=== PATIENT | male | born 1965 | race Caucasian/White ===

== ENCOUNTER 2017-11-11 09:59 | Emergency (ER) | payer OTHER ==
[2017-11-11 10:51] VITALS: BP 149/86
--- NOTE | 2017-11-11 11:23 | UC ---
UC General HPI - HPI Summary HPI Summary: Patient has developed a large lumb under the mandible. it has gotten bigger over the last 3 weeks, it is non tender, no decrease in salivary function, no fever. does have some dental issues, but no sign of abcess or infection at the gum line. did have sleep apnea surgery 10 years ago no other throat issues, hx of tobacco abuse, althought he stopped that years ago. patient does not have a PCP - History of Current Complaint Chief Complaint: Malik Stated Complaint: NECK SWELLING Time Seen by Provider: 11/11/17 11:05 Hx Obtained From: Patient Onset/Duration: Sudden Onset, Lasting Weeks - 3 Timing: Constant Current Severity: None Pain Intensity: 0 - Allergy/Home Medications Allergies/Adverse Reactions: Allergies Allergy/AdvReac Type Severity Reaction Status Date / Time No Known Allergies Allergy Verified 11/11/17 10:37 Home Medications: Home Medications Ibuprofen TAB* [Motrin TAB* 800 MG] 800 mg PO Q12H PRN 11/11/17 [History Confirmed 11/11/17] Unknown Antibiotic 1 tab PO BID 11/11/17 [History Confirmed 11/11/17] PMH/Surg Hx/FS Hx/Imm Hx Previously Healthy: Yes - Surgical History Surgical History: None Surgery Procedure, Year, and Place: tonsils 2006 - Family History Known Family History: Positive: Cardiac Disease, Hypertension, Diabetes, Other - MS - Social History Alcohol Use: Weekly Alcohol Amount: 12 pack Substance Use Type: None Smoking Status (MU): Never Smoked Tobacco Type: Smokeless Tobacco Amount Used/How Often: 1 can per 2-3 days Review of Systems Constitutional: Negative Skin: Negative Eyes: Negative ENT: Other - large lump under chin Respiratory: Negative Cardiovascular: Negative Gastrointestinal: Negative Genitourinary: Negative Motor: Negative Neurovascular: Negative Musculoskeletal: Negative Neurological: Negative Psychological: Negative Is Patient Immunocompromised?: No All Other Systems Reviewed And Are Negative: Yes Physical Exam Triage Information Reviewed: Yes Appearance: No Pain Distress, Well-Nourished, Ill-Appearing Vital Signs: Initial Vital Signs Temp 98.5 F 11/11/17 10:40 Pulse 78 11/11/17 10:40 Resp 18 11/11/17 10:40 BP 149/86 11/11/17 10:40 Pulse Ox 100 11/11/17 10:40 Vital Signs Reviewed: Yes Eye Exam: Normal ENT: Positive: Pharynx normal, TMs normal, Other - large,sub mandibular non mobile, non tender mass. increased in size over the past 3 weeks, Dental: Positive: Dental Fracture @ - left lower jaw Neck exam: Normal Neck: Positive: Nontender, No Lymphadenopathy Respiratory Exam: Normal Respiratory: Positive: Chest non-tender, Lungs clear, Normal breath sounds Cardiovascular Exam: Normal Cardiovascular: Positive: RRR, No Murmur, Pulses Normal Abdominal Exam: Normal Bowel Sounds: Positive: Present Musculoskeletal Exam: Normal Neurological Exam: Normal Skin Exam: Normal Course/Dx - Course Course Of Treatment: hx obtained, exam performed ,meds reviewed, consulted with dr grimes, referred to ENT for further evaluation, did prescribed a course of keflex to treate any underlying infections cause, however suspision of infection is low. - Differential Dx - Multi-Symptom Provider Diagnoses: submandibular swelling Discharge - Discharge Plan Condition: Stable Disposition: HOME Patient Education Materials: Soft Tissue Mass (ED) Referrals: ALBERTA Eason [Primary Care Provider] - Donis Dooley MD [Medical Doctor] - Additional Instructions: 1. Take the medication as prescribed, I do not see this as an infection, but will attempt to treat as such until further imaging is completed, due to slight improvement in the past 2. Follow up with ENT, Since you have seen Dr Lopez in the past, I recommend starting there, however I have included the name of another ENT if you cannot get an appointment in a timely fashion at Dr Robles office.
== END 2017-11-11 11:35 | disposition home or self-care (01) ==
LOC: UCCORT 09:59
DX: R22.0 Localized swelling, mass and lump, head (principal); Z87.891 Personal history of nicotine dependence
CPT/HCPCS: 99212; G0463

== ENCOUNTER 2018-03-12 11:14 | Emergency (ER) | payer OTHER ==
[2018-03-12] MEDS ORDERED: NS 0.9% 1000 ML* 1,000 ML IV ONE (11:29)
[2018-03-12 11:50] LABS: ABS Basophils 0.1 10^3/ul (0-0.2); ABS Eosinophils 0.1 10^3/ul (0-0.6); ABS Lymphocytes 2.7 10^3/ul (1.0-4.8); ABS Monocytes 0.7 10^3/ul (0-0.8); ABS Neutrophils 3.7 10^3/ul (1.5-7.7); ABS Nucleated RBC 0 10^3/ul; Eosinophil % 0.7 % (0-6); Hematocrit 40 % (42-52); Hemoglobin 13.8 g/dl (14.0-18.0); Lymphocyte % 37.8 % (25-47); Mean Corpuscular HGB Conc 35 g/dl (31-36); Mean Corpuscular Hemoglobin 31 pg (27-31); Mean Corpuscular Volume 89 fL (80-94); Mean Platelet Volume 7.1 um3 (7.4-10.4); Nucleated Red Blood Cells % 0; Platelet Count 274 10^3/ul (150-450); Red Blood Count 4.46 10^6/ul (4.00-5.40); Red Cell Distribution Width 14 % (10.5-15); White Blood Count 7.2 10^3/ul (3.5-10.8)
--- NOTE | 2018-03-12 11:56 | RAD ---
Indication: Chest pain. Single frontal view of the chest performed at 1139 hours was reviewed. No prior studies are available. No mediastinal shift is noted. Heart is of normal size and configuration. Lung arguelles appear clear. IMPRESSION: NO ACTIVE CARDIOPULMONARY DISEASE IS NOTED.
[2018-03-12] MEDS ORDERED: Aspirin 81 mg CHEW TAB* 81 MG TAB.CHEW PO ONE (11:57)
[2018-03-12 11:58] LABS: INR 0.94 (0.77-1.02)
--- NOTE | 2018-03-12 12:06 | ED ---
HPI Chest Pain - HPI Summary HPI Summary: This is samuel Hardy documenting for attending Chito Ashley MD. This patient is a 52 year old M presenting to [facility] with a chief complaint of discrete, mid-sternal CP with tightness since 10:30AM. Pt felt similar symptoms a few days ago and he went to the ER at [facility] where he was given medication for HTN. The patient rates the pain 2/10 in severity. Symptoms aggravated by food that gives him acid reflux. Patient reports mid sternal CP, trouble focusing, tightness in the chest, foot pain, mild diaphoresis, and intermittent vision changes and fuzziness. Patient denies ATKINS, dizziness, nausea , SOB, abd pain, difficulty urinating, or difficulty passing stool. Pt does not know the name of his new BP but he took it this morning at 4AM. No other Rx. PMHX acid reflux, removed benign tumor underneath chin, and chronic foot pain. SHx current smoker. - History of Current Complaint Chief Complaint: EDChestWallPain Time Seen by Provider: 03/12/18 11:24 Hx Obtained From: Patient Onset/Duration: Started Hours Ago - 10:30AM Timing: Constant Initial Severity: Mild Current Severity: Mild Pain Intensity: 2 Pain Scale Used: 0-10 Numeric Chest Pain Location: Mid Sternal Chest Pain Radiates: No Character: Tightness - Allergy/Home Medications Allergies/Adverse Reactions: Allergies Allergy/AdvReac Type Severity Reaction Status Date / Time No Known Allergies Allergy Verified 11/11/17 10:37 Home Medications: Home Medications Lisinopril TAB* [Prinivil TAB*] 10 mg PO DAILY 03/12/18 [History Confirmed 03/12] PMH/Surg Hx/FS Hx/Imm Hx Cardiovascular History: Reports: Hx Hypertension History: Denies: Hx Dialysis EENT History: Denies: Hx Deafness - Surgical History Surgery Procedure, Year, and Place: tonsils 2006 Infectious Disease History: No Infectious Disease History: Reports: History Other Infectious Disease Denies: Traveled Outside the [place] in Last 30 Days - Family History Known Family History: Positive: Cardiac Disease, Hypertension, Diabetes, Other - MS - Social History Alcohol Use: Weekly Alcohol Amount: 12 pack Substance Use Type: Reports: None Hx Tobacco Use: Yes Smoking Status (MU): Current Every Day Smoker Amount Used/How Often: 1 can per 2-3 days Review of Systems Positive: Skin Diaphoresis - mild. Negative: Fever Positive: Blurred Vision - occasional "tunnel vision" Positive: Chest Pain Negative: Shortness Of Breath Negative: Abdominal Pain, Nausea Negative: dysuria, hematuria Positive: Other - foot pain Negative: Headache All Other Systems Reviewed And Are Negative: Yes Physical Exam - Summary Physical Exam Summary: General: well-appearing, no pain distress Skin: warm, color reflects adequate perfusion, dry Head: normal Eyes: EOMI, HORACIO ENT: normal Neck: supple, nontender Respiratory: CTA, breath sounds present Cardiovascular: Elevated BP. Abdomen: soft, nontender Bowel: present Musculoskeletal: normal, strength/ROM intact. No LE edema. Neurological: sensory/motor intact, A&O x3 Psychological: affect/mood appropriate GCS: 15 Triage Information Reviewed: Yes Vital Signs On Initial Exam: Initial Vitals Temp Pulse Resp BP Pulse Ox 98.3 F 81 20 169/98 99 03/12/18 11:17 03/12/18 11:17 03/12/18 11:17 03/12/18 11:17 03/12/18 11:17 Vital Signs Reviewed: Yes Diagnostics - Vital Signs Vital Signs Temp Pulse Resp BP Pulse Ox 03/12/18 11:27 76 100 03/12/18 11:26 78 161/98 100 03/12/18 11:17 98.3 F 81 20 169/98 99 - Laboratory Lab Results: Lab Results 03/12/18 03/12/18 Range/Units 11:35 11:35 WBC 7.2 (3.5-10.8) 10^3/ul RBC 4.46 (4.00-5.40) 10^6/ul Hgb 13.8 L (14.0-18.0) g/dl Hct 40 L (42-52) % MCV 89 (80-94) fL MCH 31 (27-31) pg MCHC 35 (31-36) g/dl RDW 14 (10.5-15) % Plt Count 274 (150-450) 10^3/ul MPV 7.1 L (7.4-10.4) um3 Neut % (Auto) 50.6 (38-83) % Lymph % (Auto) 37.8 (25-47) % [place] % (Auto) 10.1 H (0-7) % Eos % (Auto) 0.7 (0-6) % Baso % (Auto) 0.8 (0-2) % Absolute Neuts (auto) 3.7 (1.5-7.7) 10^3/ul Absolute Lymphs (auto) 2.7 (1.0-4.8) 10^3/ul Absolute Monos (auto) 0.7 (0-0.8) 10^3/ul Absolute Eos (auto) 0.1 (0-0.6) 10^3/ul Absolute Basos (auto) 0.1 (0-0.2) 10^3/ul Absolute Nucleated RBC 0 10^3/ul Nucleated RBC % 0 INR (Anticoag Therapy) 0.94 (0.77-1.02) D-Dimer, Quantitative < 200 (Less Than 230) ng/mL Result Diagrams: 03/12/18 11:35 03/12/18 11:35 Lab Statement: Any lab studies that have been ordered have been reviewed, and results considered in the medical decision making process. - Radiology CXR Radiology Interpretation Completed By: Radiologist - NO ACTIVE CARDIOPULMONARY DISEASE IS NOTED. ER Physician has reviewed this report - CT Brain CT Interpretation Completed By: Radiologist - No intracranial mass or hemorrhage is noted. ER Physician reviewed this report - EKG 11:38 Cardiac Rate: NL - 73 bpm EKG Rhythm: Sinus Rhythm Ectopy: None EKG Interpretation: Min ST elevation anterior leads. Concave up ST.Q waves in V1 and V2. LVH. Re-Evaluation - Re-Evaluation First Eval Re-Evaluation Time: 14:00 Change: Improved Comment: Pt feels a lot better, his head feels more clear and his CP has improved. BP has improved. We discussed his results and he decided he would rather repeat his troponin than be admitted. Second Eval Re-Evaluation Time: 15:00 Comment: Pt still feels much better. Chest Pain Course/Dx - Course Course Of Treatment: IMPROVED IN ED. DISCUSSED ADMISSION FOR THE CHEST PRESSURE. THE PATIENT PREFERS SECOND TROPONIN AND F/U PMD. DISCUSSED INCREASING THE DOSE OF LISINOPRIL TO 20 MG A DAY. F/U PMD; RETURN TO ED IF WORSE. - Diagnoses Provider Diagnoses: Chest pain, Hypertension Discharge - Sign-Out/Discharge Documenting (check all that apply): Patient Departure - Discharge Plan Condition: Stable Disposition: HOME Patient Education Materials: Chest Pain (ED), Hypertension (ED) Referrals: Lucie Cespedes MD [Primary Care Provider] - Additional Instructions: FOLLOW UP WITH YOUR DOCTOR. TAKE THE LISINOPRIL 10MG TWICE A DAY. RETURN TO THE EMERGENCY DEPARTMENT FOR ANY WORSENING OF YOUR CONDITION; CHEST PAIN, SHORTNESS OF BREATH, YOU FEEL ILL OR QUESTIONS OR CONCERNS. - Billing Disposition and Condition Condition: STABLE Disposition: Home
[2018-03-12 12:09] LABS: EGFR Non-African American 103.4 (>60)
--- NOTE | 2018-03-12 12:23 | RAD ---
Indication: Hypertension. Headache. CT of the brain was performed without IV contrast. Ventricular structures are midline. No midline shift is noted. The extra-axial spaces are unremarkable. There is no evidence of intracranial mass or hemorrhage. No other high or low density lesions are identified. Mastoid air cells and paranasal sinuses are unremarkable. IMPRESSION: No intracranial mass or hemorrhage is noted.
[2018-03-12 15:53] VITALS: BP 142/88
== END 2018-03-12 15:35 | disposition home or self-care (01) ==
LOC: ED 11:14
DX: R07.89 Other chest pain (principal); I10 Essential (primary) hypertension; Z82.49 Family history of ischemic heart disease and other diseases of the circulatory system; Z83.3 Family history of diabetes mellitus; F17.220 Nicotine dependence, chewing tobacco, uncomplicated
CPT/HCPCS: 36415; 70450; 71045; 80053; 82550; 82553; 83605; 83690; 83735; 83880; 84443; 84484; 85025; 85379; 85610; 86140; 93005; 96360; 99283; A9270-GY

== ENCOUNTER 2024-04-22 12:19 | Observation (INO) ==
[~2024-04-22 12:19] MED LIST: Ondansetron 4 mg VIAL 2 MG/ML 2 ml VIAL IV PRN
[2024-04-22 13:54] LABS: Hematocrit 36.7 % (38-53); Hemoglobin 12.6 g/dL (13.2-16.3); Mean Corpuscular Hemoglobin 31.1 pg (27-33); Mean Corpuscular Hgb Conc 34.3 g/dL (31-36); Mean Corpuscular Volume 90.8 fL (80-97); Mean Platelet Volume 6.9 fL (7.5-11.2); Platelet Count 230 10^3/uL (150-450); Red Blood Count 4.04 10^6/uL (4.06-5.63); Red Cell Distribution Width 14.1 % (12-17); White Blood Count 6.2 10^3/uL (3.6-10.2)
[2024-04-22 14:20] LABS: Activated Partial Thrombo Time 30.3 seconds (26.0-38.0); INR 1.02 (0.85-1.14)
[2024-04-22 14:40] LABS: Albumin/Globulin Ratio 1.5 (1-3); Calcium 8.9 mg/dL (8.6-10.3); Creatinine, Serum 0.76 mg/dL (0.67-1.17); Globulin 2.7 g/dL (2-4); Potassium 3.4 mmol/L (3.5-5.0); Total Protein 6.7 g/dL (6.4-8.9); eGFR CKD-EPI 104.8 (>60)
[2024-04-22] MEDS: Morphine 2 MG/ML SYRINGE IV PRN (16:26)
[2024-04-22] MEDS: fentaNYL 100 mcg/2 ml 50 MCG/ML VIAL IV SLOW PU ONE (17:21)
[2024-04-22] MEDS: NS 0.9% 1000 ml BAG 1,000 ML IV SCH (17:21)
[2024-04-22] MEDS: Midazolam 10 mg/10 ml VIAL 1 mg/ml 10 ml VIAL (10 mg) IV SLOW PU ONE (17:22)
[2024-04-22] MEDS: ceFAZolin 1 GM ADVAN 1 GM in NS 0.9% 50 ML 50 ML IVPB ONE (17:22)
[2024-04-22] MEDS: Midazolam 2 mg/2 ml VIAL 1 mg/ml 2 ml VIAL (2 mg) ONE (17:23)
[2024-04-22] MEDS: fentaNYL 100 mcg/2 ml 50 MCG/ML VIAL ONE (17:23)
[2024-04-22] MEDS: fentaNYL 250 mcg/5 ml 50 MCG/ML 5 ml VIAL (250 MCG) ONE (17:24)
[2024-04-22] MEDS: Lidocaine 2% JELLY 6 ML Topical TOPICAL ONE (17:24)
[2024-04-22] MEDS: Glucagon 1 mg VIAL KIT ONE (17:24)
[2024-04-22] MEDS: ceFAZolin 1 GM ADVAN 1 GM ADDV.VIAL IVPB ONE (17:25)
[2024-04-22] MEDS ORDERED: Morphine 2 MG/ML SYRINGE IV PRN (19:13)
[2024-04-23 00:47] LABS: ABS Eosinophils 0.1 10^3/uL (0.0-0.5); ABS Lymphocytes 1.6 10^3/uL (1.0-4.8); ABS Monocytes 0.6 10^3/uL (0.0-1.1); ABS Neutrophils 4.2 10^3/uL (1.5-7.6); Eosinophil % 0.9 %; Hematocrit 35.3 % (38-53); Hemoglobin 11.7 g/dL (13.2-16.3); Mean Corpuscular Hemoglobin 30.3 pg (27-33); Mean Corpuscular Hgb Conc 33.2 g/dL (31-36); Mean Corpuscular Volume 91.4 fL (80-97); Mean Platelet Volume 6.6 fL (7.5-11.2); Nucleated Red Blood Cells % 0.1 %/100WBC (0.0-0.8); Platelet Count 211 10^3/uL (150-450); Red Blood Count 3.86 10^6/uL (4.06-5.63); White Blood Count 6.6 10^3/uL (3.6-10.2)
[2024-04-23 01:23] LABS: Albumin 3.6 g/dL (3.2-5.2); Albumin/Globulin Ratio 1.6 (1-3); Calcium 8.4 mg/dL (8.6-10.3); Creatinine, Serum 0.83 mg/dL (0.67-1.17); Globulin 2.3 g/dL (2-4); Potassium 3.5 mmol/L (3.5-5.0); Total Bilirubin 1.2 mg/dL (0.2-1.0); Total Protein 5.9 g/dL (6.4-8.9); eGFR CKD-EPI 102.1 (>60)
[2024-04-23 10:11] VITALS: BP 121/66
== END 2024-04-23 11:19 | disposition home or self-care (01) ==
LOC: SP 12:19 → SSU 12:19
PROVIDERS: ADMIT Internal Medicine Hematology & Oncology; ATTEND Internal Medicine Hematology & Oncology